=== PATIENT | male | born 1970 | race Hispanic/Latino ===

== ENCOUNTER 2018-11-25 12:09 | Outpatient (CLI) | payer OTHER ==
--- NOTE | 2018-11-25 15:22 | ULT ---
ULTRASOUND DOPPLER DUPLEX CAROTID: 11/25/2018 HISTORY: A 48-year-old male with dizziness, R42. TECHNIQUE: Bains-scale, color-flow, and spectral analysis of the major arteries of the neck. FINDINGS: Little or no plaque is visualized at the carotid bulbs. The highest peak systolic velocities in the internal carotid arteries are 65 cm/s on the right and 11 5 cm/s on the left. ICA/CCA ratios are 0.6 on the right and 0.8 on the left. Vertebral artery flow is antegrade bilaterally. IMPRESSION: No hemodynamically significant stenosis. POS: VIMAL
== END 2018-11-25 12:10 | disposition home or self-care (01) ==
LOC: BICULT 12:09
PROVIDERS: ATTEND Family Medicine
DX: R42 Dizziness and giddiness (principal)
CPT/HCPCS: 93880